=== PATIENT | male | born 1925 | race African-American/Black ===

== ENCOUNTER 2016-10-12 10:54 | Emergency (ER) | payer MEDICARE, BC ==
--- NOTE | 2016-10-12 11:02 | ER Document Report ---
ED Dizziness/Weakness - General Mode of Arrival: Medic Information source: Patient TRAVEL OUTSIDE OF THE [place] IN LAST 30 DAYS: No - HPI Patient complains to provider of: Dizziness, Weakness Onset: Other - Refer to HPI notes <KAYE PINTO - Last Filed: 10/12/16 11:09> <MARIIA HUERTAMY - Last Filed: 10/13/16 22:41> - General Stated Complaint: DIZZINESS,WEAKNESS Time Seen by Provider: 10/12/16 11:01 Notes: Patient is an 89 year old male presenting to the emergency department for weakness and dizziness. Patient states he has had these symptoms for the last few weeks and has increased dizziness over the last 2-3 days. Patient states he feels like he is staggering/walking into cervantes when he ambulates which has been present over the last 2-3 days. Patient was out driving today and noticed he was driving very slow, about only 5 mph so he pulled over and contacted EMS. Patient has not had an appetite lately and has not been drinking many fluids. Patient's last PO was 1 hour ago. Patient lives with his . Patient denies any headache, blurry or double vision, nausea, vomiting, diarrhea, difficulty urinated or having a bowel movement, chest pain, or shortness of breath. Patient also denies any known history of a stroke. Patient has a history of hypertension, hypercholesterolemia and a stent. Patient resides with his spouse. (KAYE PINTO) - Related Data Allergies/Adverse Reactions: No Known Allergies Allergy (Verified 10/12/16 11:48) Home Medications: Current Home Medications Amlodipine Besylate [Amlodipine Besylate] 5 mg PO BID 10/12/16 [History] Latanoprost [Latanoprost] 1 drop OU QHS 10/12/16 [History] Past Medical History - General Information source: Patient - Social History Smoking Status: Unknown if Ever Smoked Family History: None Patient has suicidal ideation: No Patient has homicidal ideation: No - Past Medical History Cardiac Medical History: Reports: Hx Hypercholesterolemia, Hx Hypertension - medicated/CONTROLLED Past Surgical History: Reports: Hx Orthopedic Surgery - Immunizations Hx Diphtheria, Pertussis, Tetanus Vaccination: No <KAYE PINTO - Last Filed: 10/12/16 11:09> Review of Systems - Review of Systems Constitutional: See HPI, Weakness EENT: No symptoms reported Cardiovascular: See HPI, Dizziness Respiratory: No symptoms reported Gastrointestinal: No symptoms reported Genitourinary: No symptoms reported Male Genitourinary: No symptoms reported Musculoskeletal: No symptoms reported Skin: No symptoms reported Hematologic/Lymphatic: No symptoms reported Neurological/Psychological: See HPI, Weakness, Gait changes -: Yes All other systems reviewed and negative <KAYE PINTO - Last Filed: 10/12/16 11:09> Physical Exam <KAYE PINTO - Last Filed: 10/12/16 11:09> <BRADLEYADELINE - Last Filed: 10/13/16 22:41> - Vital signs Vitals: Temp Pulse Resp BP Pulse Ox 98.0 F 57 L 16 149/76 H 97 10/12/16 11:02 10/12/16 11:02 10/12/16 11:02 10/12/16 11:02 10/12/16 11:02 - Notes Notes: GENERAL: Alert, interacts well. Mild distress. HEAD: Normocephalic, atraumatic. EYES: Appear normal. Pupils equal, round, and reactive to light. ENT: Moist mucus membranes, tongue midline. NECK: Full range of motion. Supple. Trachea midline. LUNGS: Clear to auscultation bilaterally, no wheezes, rales, or rhonchi. No respiratory distress. HEART: Regular rate and rhythm. No murmurs, gallops, or rubs. ABDOMEN: Soft, non-tender. Non-distended. Normal bowel sounds. EXTREMITIES: Moves all 4 extremities spontaneously. Normal strength. No edema. NEUROLOGICAL: Alert and oriented x3. Normal speech. No focal neurological deficits. GSC 15. Ambulation is tested during exam, patient has a normal gait but states he has increased dizziness in his head while walking and states he feels horrible. PSYCH: Normal affect, normal mood. SKIN: Warm, dry, normal turgor. No rashes or lesions noted. (KAYE PINTO) Course <KAYE PINTO - Last Filed: 10/12/16 11:09> - Laboratory Result Diagrams: 10/12/16 11:10 10/12/16 11:10 <BRADLEYADELINE - Last Filed: 10/13/16 22:41> - Re-evaluation Re-evalutation: 10/12/16 12:41 Presents emergency department with a chief complaint of dizziness intermittently for the past 2-3 weeks constant and worsening for the past 2-3 days. He says when he walks h n speech denies weakness on one side of body versus the other he denies any chest pain shortness breath nausea vomiting dull pain diarrhea fevers chills or change in appetite but states he has not had much of an appetite and does not eat well and has not done so in quite some time. On examination he is normotensive not tachypneic or tachycardic she has a GCS of 15 with no acute neurological deficits. I ambulated him in the room he says he feels a little full in his head but he is able to ambulate without any difficulty and is not- ataxic. 10/12/16 13:18 Patient reassessed at bedside CT chest x-ray EKG and labs are all normal. Family is here had a long discussion with them including the daughter who is a nurse practitioner. Patient is eating and drinking at bedside no acute distress vital signs are stable. He has a GCS of 15 no neurological deficits and was not ataxic gait gait so I do not think any to admit him for an MRI to rule out cerebellar stroke. He does not eat or drink a lot maybe 2 glasses of lemonade a day encouraged him to drink plenty of fluids and follow-up with his primary care physician on Friday and discuss this with the family as well and discussed specific reasons for ED return sooner 10/12/16 13:48 Reassessed again with family members still remains slightly dizzy. I told the patient at this time I want to admit him to the hospital his daughter also wanted to be admitted to the hospital he vehemently refused to be admitted to the hospital and he is of sound mind and judgment. And has declined admission at this time. I told him to return immediately for any concerning conditions otherwise he is going to follow primary care on Friday return for increasing worsening or new symptoms (ADELINE HUERTA) - Vital Signs Vital signs: Temp Pulse Resp BP Pulse Ox 97.4 F 55 L 16 148/99 H 100 10/12/16 13:32 10/12/16 13:32 10/12/16 13:32 10/12/16 13:32 10/12/16 13:32 - Laboratory Laboratory results interpreted by me: 10/12/16 10/12/16 11:10 11:10 WBC 3.0 L RBC 4.19 L Hgb 13.1 L Plt Count 146 L Seg Neutrophils % 37.1 L Eosinophils % 12.7 H Absolute Neutrophils 1.1 L Chloride 108 H Creatinine 1.41 H Est GFR ( Amer) 57 L Est GFR (Non-Af Amer) 47 L - EKG Interpretation by Me Additional EKG results interpreted by me: 10/12/16 11:07 EKG interpreted by myself through the hospital sinus rhythm at [address] segment elevation or depression (ADELINE HUERTA) Discharge <KAYE PINTO - Last Filed: 10/12/16 11:09> <ADELINE HUERTA - Last Filed: 10/13/16 22:41> - Discharge Clinical Impression: Dizziness, Weakness Condition: Stable Disposition: HOME, SELF-CARE Additional Instructions: Dizziness Under normal circumstances, your sense of balance is controlled by a number of signals that your brain receives from several locations: Eyes. No matter what your position, visual signals help you determine where your body is in space and how it's moving. Sensory nerves. These are in your skin, muscles and joints. Sensory nerves send messages to your brain about body movements and positions. Inner ear. The organ of balance in your inner ear is the vestibular labyrinth. It includes loop-shaped structures (semicircular canals) that contain fluid and fine, hair-like sensors that monitor the rotation of your head. Near the semicircular canals are the utricle and saccule, which contain tiny particles called otoconia ([id number]). These particles are attached to sensors that help detect gravity and [id number]-[id number] motion. Good balance depends on at least two of these three sensory systems working well. For instance, closing your eyes while washing your hair in the shower doesn't mean you'll lose your balance. Signals from your inner ear and sensory nerves help keep you upright. However, if your central nervous system can't process signals from all of these locations, if the messages are contradictory, or if the sensory systems aren't functioning properly, you may experience loss of balance. Dizziness may have a number of potential causes. These may include: Feeling of faintness (presyncope) "Presyncope" is the medical term for feeling faint and lightheaded without losing consciousness. Sometimes nausea, pale skin and a sense of dizziness accompany a feeling of faintness. Causes of presyncope include: Drop in blood pressure (orthostatic hypotension). A dramatic drop in your systolic blood pressure - the higher number in your blood pressure reading - may result in lightheadedness or a feeling of faintness. It can occur after sitting up or standing too quickly. Inadequate output of blood from the heart. Conditions such as partially blocked arteries (atherosclerosis), disease of the heart muscle (cardiomyopathy) , abnormal heart rhythm (arrhythmia) or a decrease in blood volume may cause inadequate blood flow from your heart. Loss of balance (disequilibrium) Disequilibrium is the loss of balance or the feeling of unsteadiness when you walk. Causes may include: Inner ear (vestibular) problems. Abnormalities with your inner ear can cause you to feel like you are floating, have a heavy head or are unsteady in the dark. Sensory disorders. Failing vision and nerve damage in your legs (peripheral neuropathy) are common in older adultsand may result in difficulty maintaining your balance. Joint and muscle problems. Muscle weakness and osteoarthritis - the type of arthritis that involves wear and tear of your joints - can contribute to loss of balance when it involves your weight-bearing joints. Medications. Loss of balance can be a side effect of certain medications, such as anti-seizure drugs, sedatives and tranquilizers. Lightheadedness and other kinds of 'dizziness' Feeling lightheaded is the feeling of being "spaced out" or having the sensation of spinning inside your head. It can also give you the sensation that if your lightheadedness worsens, you might lose consciousness. Causes may include: Inner ear disorders. These abnormalities of your inner ear can lead to illusions of motion and make you feel like you're floating. Anxiety disorders. Certain anxiety disorders, such as panic attacks and a fear of leaving home or being in large, open spaces (agoraphobia), may cause lightheadedness. Hyperventilation. Abnormally rapid breathing that often accompanies anxiety disorders may make you feel lightheaded. follow Up with your primary care physician on Friday return for increasing worsening or new symptoms Prescriptions: Meclizine HCl [Antivert 25 mg Tablet] 25 mg PO TID #12 tablet Scribe Documentation - Scribe Written by Luis:: Luis Sanderson 10/12/16 11:27 acting as scribe for :: Bradley <KAYE PINTO - Last Filed: 10/12/16 11:09>
[2016-10-12 11:28] LABS: ABSOLUTE EOSINOPHILS # (AUTO) 0.4 10^3/uL (0.0-0.6); ABSOLUTE LYMPHOCYTES (AUTO) 1.1 10^3/uL (0.5-4.7); ABSOLUTE MONOCYTES (AUTO) 0.4 10^3/uL (0.1-1.4); ABSOLUTE NEUT (AUTO) 1.1 10^3/uL (1.7-8.2); BASOPHILS % (AUTO) 1.2 % (0-2); EOSINOPHILS % (AUTO) 12.7 % (0-6); HEMATOCRIT 39.7 % (37.9-51.0); HEMOGLOBIN 13.1 g/dL (13.5-17.0); HGB HCT DIFFERENCE -0.4; LYMPHOCYTES % (AUTO) 36.5 % (13-45); MEAN CORPUSCULAR HEMOGLOBIN 31.3 pg (27.0-33.4); MEAN CORPUSCULAR HGB CONC 33.1 g/dL (32.0-36.0); MEAN CORPUSCULAR VOLUME 95 fl (80-97); MONOCYTES % (AUTO) 12.5 % (3-13); RED BLOOD COUNT 4.19 10^6/uL (4.35-5.55); RED CELL DISTRIBUTION WIDTH 13.3 % (11.5-14.0); SEGMENTED NEUTROPHILS % (AUTO) 37.1 % (42-78)
[2016-10-12 11:51] LABS: ALANINE AMINOTRANSFERASE 24 U/L (21-72); ALBUMIN 3.8 g/dL (3.5-5.0); ALKALINE PHOSPHATASE 49 U/L (38-126); ANION GAP 8 (5-19); ASPARTATE AMINO TRANSFERASE 27 U/L (17-59); BILIRUBIN,DIRECT 0.2 mg/dL (0.0-0.4); BILIRUBIN,TOTAL 0.4 mg/dL (0.2-1.3); BLOOD UREA NITROGEN 18 mg/dL (7-20); CALCIUM 9.5 mg/dL (8.4-10.2); CARBON DIOXIDE 26 mmol/L (22-30); CHLORIDE 108 mmol/L (98-107); CREATINE KINASE 144 U/L (55-170); CREATININE RESULT 1.41 mg/dL (0.52-1.25); GLUCOSE 110 mg/dL (75-110); POTASSIUM 4.2 mmol/L (3.6-5.0); SODIUM 142.2 mmol/L (137-145)
[2016-10-12 12:02] LABS: TROPONIN I < 0.012 ng/mL
--- NOTE | 2016-10-12 12:11 | RADIOLOGY REPORT (SQ) ---
EXAM DESCRIPTION: CT HEAD WITHOUT COMPLETED DATE/TIME: 10/12/2016 11:57 am REASON FOR STUDY: DIZZINESS COMPARISON: 05/12/2014 TECHNIQUE: Axial images acquired through the brain without intravenous contrast. Images reviewed wi th bone, brain and subdural windows. Images stored on PACS. All CT scanners at this facility use dose modulation, iterative reconstruction, and/or weight based d osing when appropriate to reduce radiation dose to as low as reasonably achievable (ALARA). [facility]: Dose Right [facility]: CareDose [facility]: Dose Right [facility]: Teradose 4D [facility]: [employer] RADIATION DOSE: Up-to-date CT equipment and radiation dose reduction techniques were employed. CTDIv ol: 64.6 mGy. DLP: 1163 mGy-cm.mGy. LIMITATIONS: None. FINDINGS: VENTRICLES: Prominent. CEREBRUM: No masses. No hemorrhage. No midline shift. Areas of low density in the white matter mos t likely due to chronic micro-vascular ischemic change. No evidence for acute infarction. CEREBELLUM: No masses. No hemorrhage. No alteration of density. No evidence for acute infarction. EXTRAAXIAL SPACES: Age-related involutional change. No fluid collections. No masses. ORBITS AND GLOBE: No intra- or extraconal masses. Normal contour of globe without masses. CALVARIUM: No fracture. PARANASAL SINUSES: No fluid or mucosal thickening. SOFT TISSUES: No mass or hematoma. OTHER: No other significant finding. IMPRESSION: NO ACUTE INTRACRANIAL PROCESS. NO SIGNIFICANT CHANGE FROM PRIOR STUDY. TECHNICAL DOCUMENTATION: JOB ID: [id number] Quality ID # [id number]: Final reports with documentation of one or more dose reduction techniques (e.g., Au tomated exposure control, adjustment of the mA and/or kV according to patient size, use of iterative reconstruction technique) 2010 [employer]- All Rights Reserved
--- NOTE | 2016-10-12 12:15 | RADIOLOGY REPORT (SQ) ---
EXAM DESCRIPTION: CHEST SINGLE VIEW COMPLETED DATE/TIME: 10/12/2016 11:55 am REASON FOR STUDY: dizziness COMPARISON: 02/21/2015 EXAM PARAMETERS: NUMBER OF VIEWS: One view. TECHNIQUE: Single frontal radiographic view of the chest acquired. RADIATION DOSE: NA LIMITATIONS: None. FINDINGS: LUNGS AND PLEURA: No opacities, masses or pneumothorax. No pleural effusion. MEDIASTINUM AND HILAR STRUCTURES: Stable in size and contour. HEART AND VASCULAR STRUCTURES: Heart normal in size. Normal vasculature. BONES: No acute findings. HARDWARE: None in the chest. OTHER: No other significant finding. IMPRESSION: NO ACUTE RADIOGRAPHIC FINDING IN THE CHEST. NO SIGNIFICANT CHANGE FROM PRIOR STUDY. TECHNICAL DOCUMENTATION: JOB ID: [id number]
[2016-10-12 12:48] LABS: APPEARANCE,URINE SLIGHTLY-CLOUDY; BILIRUBIN,URINE NEGATIVE (NEGATIVE); GLUCOSE, URINE NEGATIVE (NEGATIVE); KETONES,URINE NEGATIVE (NEGATIVE); LEUKOCYTE ESTERASE,URINE NEGATIVE (NEGATIVE); NITRITE,URINE NEGATIVE (NEGATIVE); PROTEIN,URINE NEGATIVE (NEGATIVE); URINE SPECIFIC GRAVITY 1.017; UROBILINOGEN,URINE NEGATIVE mg/dL (<2.0)
[2016-10-12 13:40] VITALS: BP 148/99
--- NOTE | 2016-10-13 13:42 | EKG REPORT ---
SEVERITY:- BORDERLINE ECG - SINUS RHYTHM PROBABLE LEFT ATRIAL ABNORMALITY : Confirmed by: Cinthya Blake MD 13-Oct-2016 13:42:18
== END 2016-10-12 13:32 | disposition home or self-care (01) ==
LOC: ER 10:54
DX: R42 Dizziness and giddiness (principal); R53.1 Weakness; R63.0 Anorexia; I10 Essential (primary) hypertension
CPT/HCPCS: 36415; 70450; 71010; 80053; 81001; 82550; 83880; 84484; 85025; 93005; 93010; 99285

== ENCOUNTER 2016-10-15 11:49 | Emergency (ER) | payer MEDICARE, BC ==
[2016-10-15] MEDS ORDERED: NORMAL SALINE 1000 ML 1,000 ML IV ONE (12:22)
--- NOTE | 2016-10-15 12:22 | ER Document Report ---
ED General - General Chief Complaint: Dizziness Stated Complaint: DIZZINESS Time Seen by Provider: 10/15/16 12:08 Notes: Patient was brought to the emergency department for reported dizziness and lightheadedness. Patient is 89 years old and still drives his car. He tells me that he was driving the car several days ago and noted that he was only going 20 [address] [place] Seen here in the emergency department for feeling weak and dizzy for the past several weeks. His visit records shows that he was here on the , just 3 days ago. Patient is a poor historian. Initially, he said he did not know why he was here or who called the rescue squad. Throughout our conversation, the patient keeps saying "let me get myself together". Still, the patient does seem to know much about his history and background. He has bottles of medication for cholesterol, hypertension, and meclizine, presumably for dizziness. Patient denies having any pains whatsoever. Denies headache, chest pain, or abdominal pain. He says a son visited from [place] over the weekend and told other family members he thought the patient was dehydrated. Patient says he has a very poor appetite and does not eat very well. Patient went to a local clinic where he is establish as a patient and had blood work drawn yesterday, but does not know any of the results. Patient has had his prostate removed. TRAVEL OUTSIDE OF THE [place] IN LAST 30 DAYS: No - Related Data Allergies/Adverse Reactions: No Known Allergies Allergy (Verified 10/12/16 11:48) Past Medical History - Social History Smoking Status: Never Smoker Chew tobacco use (# tins/day): No Frequency of alcohol use: None Drug Abuse: None Family History: None, Reviewed & Not Pertinent Patient has suicidal ideation: No Patient has homicidal ideation: No - Past Medical History Cardiac Medical History: Reports: Hx Hypercholesterolemia, Hx Hypertension - medicated/CONTROLLED Denies: Hx Heart Attack Pulmonary Medical History: Denies: Hx Asthma GI Medical History: Denies: Hx Hepatitis, Hx Hiatal Hernia, Hx Ulcer Infectious Medical History: Denies: Hx Hepatitis Past Surgical History: Reports: Hx Orthopedic Surgery - Immunizations Hx Diphtheria, Pertussis, Tetanus Vaccination: No Review of Systems - Review of Systems Notes: REVIEW OF SYSTEMS: CONSTITUTIONAL : Denies fever. Sleeps a lot. EENT: Denies eye, ear, nose or mouth or throat pain or other symptoms. CARDIOVASCULAR: Denies chest pain. RESPIRATORY: Denies cough, chest congestion, or shortness of breath. GASTROINTESTINAL: Denies abdominal pain or nausea, vomiting, or diarrhea. GENITOURINARY: Denies difficulty or painful urinating, urinary frequency, blood in urine. MUSCULOSKELETAL: Denies back or neck pain. Denies joint pain or swelling. SKIN: Denies rash or skin lesions. NEUROLOGICAL: Denies LOC or altered mental status. Denies headache. Denies sensory loss or motor deficits. ALL OTHER SYSTEMS REVIEWED AND NEGATIVE. Physical Exam - Vital signs Vitals: Resp 15 10/15/16 11:50 Interpretation: Normal - Notes Notes: PHYSICAL EXAMINATION: GENERAL: Well-appearing, in no acute distress. HEAD: Atraumatic, normocephalic. NECK: Normal range of motion, supple. No carotid bruits heard. LUNGS: Breath sounds clear and equal bilaterally. HEART: Regular rate and rhythm without murmurs. ABDOMEN: Soft, nontender. No guarding or rebound. BACK: No tenderness throughout entire back. EXTREMITIES: Normal range of motion without pain. NEUROLOGICAL: Normal speech, but confused at times. Normal sensory, motor, and reflex exams. Awake, alert, and oriented x3. PSYCH: Normal mood, normal affect. SKIN: Warm, dry, no rashes. Course - Re-evaluation Re-evalutation: 10/15/16 19:56 Patient remained very stable throughout his entire stay. His vital signs remained normal. His family came to visit I was able to talk with them and explained the findings. His labs suggest slight, very slight dehydration. Otherwise patient looks to be in pretty good health. There is no evidence of any infectious processes. I did strongly urged the patient to stop driving his motor vehicle. I pointed out to him that his capabilities and reflexes at this age are not sufficient to handle a large vehicle and he is going to hurt himself or someone else if he continues driving. - Vital Signs Vital signs: Temp Pulse Resp BP Pulse Ox 98.2 F 67 16 163/85 H 99 10/15/16 14:23 10/15/16 12:14 10/15/16 14:23 10/15/16 14:24 10/15/16 14:22 - Laboratory Result Diagrams: 10/15/16 12:20 10/15/16 12:20 Laboratory results interpreted by me: 10/15/16 10/15/16 12:20 12:20 WBC 3.4 L RBC 3.75 L Hgb 11.7 L Hct 35.2 L Plt Count 120 L Seg Neutrophils % 29.9 L Eosinophils % 19.3 H Absolute Neutrophils 1.0 L Absolute Eosinophils 0.7 H Chloride 110 H Creatinine 1.31 H Est GFR (Non-Af Amer) 52 L Total Protein 6.1 L Albumin 3.1 L - Diagnostic Test Radiology reviewed: Image reviewed, Reports reviewed - CT scan shows microvascular ischemia and atrophy but no acute processes. Discharge - Discharge Clinical Impression: Weakness, Dehydration, mild Condition: Stable Disposition: HOME, SELF-CARE Additional Instructions: Weakness We did not find a definite cause for your weakness. This may require further medical tests. Weakness can be caused by infection, physical exhaustion , rapid weight loss, dehydration, or medicine side effects. Diseases of the muscles, heart, nerves, and blood vessels can make you weak. Sometimes the problem is simply depression or lack of exercise. You should get plenty of rest. Unless the doctor tells you otherwise, it's usually best to add short periods of regular mild exercise. Eat a nutritious diet with multiple small, low-sugar meals. If symptoms continue, additional medical evaluation will be necessary. Be sure to follow up as instructed. If you become very dizzy, nauseated, or feel like you're going to faint, lie down right away. Wait until the symptoms have passed before you get up again. Stand up slowly. Call the doctor or return if you develop chest pain, abdominal pain, severe headache, irregular heartbeat or very fast pulse, confusion, vision problems, fever, muscular pain, or any other new symptom. DIZZINESS: Under normal circumstances, your sense of balance is controlled by a number of signals that your brain receives from several locations: Eyes. No matter what your position, visual signals help you determine where your body is in space and how it's moving. Sensory nerves. These are in your skin, muscles and joints. Sensory nerves send messages to your brain about body movements and positions. Inner ear. The organ of balance in your inner ear is the vestibular labyrinth. It includes loop-shaped structures (semicircular canals) that contain fluid and fine, hair-like sensors that monitor the rotation of your head. Near the semicircular canals are the utricle and saccule, which contain tiny particles called otoconia ([id number]). These particles are attached to sensors that help detect gravity and hsmd-jny-[id number] motion. Good balance depends on at least two of these three sensory systems working well. For instance, closing your eyes while washing your hair in the shower doesn't mean you'll lose your balance. Signals from your inner ear and sensory nerves help keep you upright. However, if your central nervous system can't process signals from all of these locations, if the messages are contradictory, or if the sensory systems aren't functioning properly, you may experience loss of balance. Dizziness may have a number of potential causes. These may include: Lightheadedness and other kinds of dizziness Feeling lightheaded is the feeling of being "spaced out" or having the sensation of spinning inside your head. It can also give you the sensation that if your lightheadedness worsens, you might lose consciousness. Causes may include: Inner ear disorders. These abnormalities of your inner ear can lead to illusions of motion and make you feel like you're floating. Anxiety disorders. Certain anxiety disorders, such as panic attacks and a fear of leaving home or being in large, open spaces (agoraphobia), may cause lightheadedness. Hyperventilation. Abnormally rapid breathing that often accompanies anxiety disorders may make you feel lightheaded. NORMAL EXAM AND WORKUP: At this time, your examination and workup show no significant abnormality. No significant abnormal physical findings were noted. All laboratory, EKG, and imaging (x-ray, CT scans, ultrasound) studies that were ordered show no significant abnormality. Although your examination and all studies that were ordered showed no significant abnormal finding, there are no examinations and no studies that are 100% accurate. There is always the possibility that some abnormality could exist and not be detected with physical examination or within the limits and capabilities of laboratory and other studies. You should return or follow up as you were instructed on your visit today for further evaluation if your symptoms do not resolve. Dehydration, Mild Dehydration can result from vomiting or diarrhea, fever, or decreased intake of fluids. If severe, hospitalization and intravenous fluids may be required. Most cases are treated at home with fluids by mouth. For the next 24 hours, drink lots of clear fluids. In mild cases, this can be soda pop or sports drinks. For more severe dehydration, the doctor may recommend special fluids such as Pedialyte or Lytren. Try to get three liters ( 3 quarts) of fluid per day. If vomiting occurs, continue to drink the fluids frequently (every 15 to 20 minutes), but in small amounts (one or two ounces). Depending on the type of dehydration, the doctor may prescribe antinausea medicine or potassium replacements. Call the doctor or return for re-examination if you become progressively weak, vomit repeatedly, or have other new symptoms. FOLLOW-UP CARE: If you have been referred to a physician for follow-up care, call the physician s office for an appointment as you were instructed or within the next two days. If you experience worsening or a significant change in your symptoms, notify the physician immediately or return to the Emergency Department at any time for re-evaluation. I will up with your primary care provider in Friday, if not feeling better. Referrals: TANIYA SALINAS MD [Primary Care Provider] - Follow up as needed
[2016-10-15 12:37] LABS: ABSOLUTE EOSINOPHILS # (AUTO) 0.7 10^3/uL (0.0-0.6); ABSOLUTE LYMPHOCYTES (AUTO) 1.3 10^3/uL (0.5-4.7); ABSOLUTE MONOCYTES (AUTO) 0.4 10^3/uL (0.1-1.4); EOSINOPHILS % (AUTO) 19.3 % (0-6); HEMATOCRIT 35.2 % (37.9-51.0); HEMOGLOBIN 11.7 g/dL (13.5-17.0); HGB HCT DIFFERENCE -0.1; LYMPHOCYTES % (AUTO) 38.2 % (13-45); MEAN CORPUSCULAR HEMOGLOBIN 31.1 pg (27.0-33.4); MEAN CORPUSCULAR HGB CONC 33.2 g/dL (32.0-36.0); MEAN CORPUSCULAR VOLUME 94 fl (80-97); MONOCYTES % (AUTO) 11.6 % (3-13); RED BLOOD COUNT 3.75 10^6/uL (4.35-5.55); RED CELL DISTRIBUTION WIDTH 13.5 % (11.5-14.0); SEGMENTED NEUTROPHILS % (AUTO) 29.9 % (42-78); WHITE BLOOD COUNT 3.4 10^3/uL (4.0-10.5)
--- NOTE | 2016-10-15 12:51 | EKG REPORT ---
SEVERITY:- ABNORMAL ECG - SINUS RHYTHM FIRST DEGREE AV BLOCK LVH BY VOLTAGE BORDERLINE T ABNORMALITIES, INFERIOR LEADS : Confirmed by: Cinthya Blake MD 15-Oct-2016 12:49:51
[2016-10-15 12:59] LABS: ALANINE AMINOTRANSFERASE 31 U/L (21-72); ALBUMIN 3.1 g/dL (3.5-5.0); ALKALINE PHOSPHATASE 57 U/L (38-126); ANION GAP 8 (5-19); ASPARTATE AMINO TRANSFERASE 29 U/L (17-59); BILIRUBIN,DIRECT 0.3 mg/dL (0.0-0.4); BILIRUBIN,TOTAL 0.3 mg/dL (0.2-1.3); BLOOD UREA NITROGEN 16 mg/dL (7-20); CALCIUM 8.4 mg/dL (8.4-10.2); CARBON DIOXIDE 25 mmol/L (22-30); CHLORIDE 110 mmol/L (98-107); CREATINE KINASE 99 U/L (55-170); CREATININE RESULT 1.31 mg/dL (0.52-1.25); GLUCOSE 106 mg/dL (75-110); POTASSIUM 3.8 mmol/L (3.6-5.0); SODIUM 142.5 mmol/L (137-145); TOTAL PROTEIN 6.1 g/dL (6.3-8.2)
[2016-10-15 13:12] LABS: CREATINE KINASE MB 0.78 ng/mL (<4.55)
[2016-10-15 13:16] LABS: TROPONIN I < 0.012 ng/mL
--- NOTE | 2016-10-15 13:16 | RADIOLOGY REPORT (SQ) ---
EXAM DESCRIPTION: CT HEAD WITHOUT COMPLETED DATE/TIME: 10/15/2016 1:01 pm REASON FOR STUDY: Dizziness and confusion COMPARISON: 10/12/2016. TECHNIQUE: Axial images acquired through the brain without intravenous contrast. Images reviewed wi th bone, brain and subdural windows. Images stored on PACS. All CT scanners at this facility use dose modulation, iterative reconstruction, and/or weight based d osing when appropriate to reduce radiation dose to as low as reasonably achievable (ALARA). [facility]: Dose Right [facility]: CareDose [facility]: Dose Right [facility]: Teradose 4D [facility]: Connoshoer RADIATION DOSE: Up-to-date CT equipment and radiation dose reduction techniques were employed. CTDIv ol: 64.6 mGy. DLP: 1163 mGy-cm.mGy. LIMITATIONS: None. FINDINGS: VENTRICLES: Prominent. CEREBRUM: No masses. No hemorrhage. No midline shift. Areas of low density in the white matter mos t likely due to chronic micro-vascular ischemic change. No evidence for acute infarction. CEREBELLUM: No masses. No hemorrhage. No alteration of density. No evidence for acute infarction. EXTRAAXIAL SPACES: Age-related involutional change. No fluid collections. No masses. ORBITS AND GLOBE: No intra- or extraconal masses. Normal contour of globe without masses. CALVARIUM: No fracture. PARANASAL SINUSES: No fluid or mucosal thickening. SOFT TISSUES: No mass or hematoma. OTHER: No other significant finding. 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 NO ACUTE PROCESS. TECHNICAL DOCUMENTATION: JOB ID: [id number] Quality ID # [id number]: Final reports with documentation of one or more dose reduction techniques (e.g., Au tomated exposure control, adjustment of the mA and/or kV according to patient size, use of iterative reconstruction technique) 2010 [employer]- All Rights Reserved
[2016-10-15 13:21] LABS: APPEARANCE,URINE CLEAR; BILIRUBIN,URINE NEGATIVE (NEGATIVE); GLUCOSE, URINE NEGATIVE (NEGATIVE); KETONES,URINE NEGATIVE (NEGATIVE); LEUKOCYTE ESTERASE,URINE NEGATIVE (NEGATIVE); NITRITE,URINE NEGATIVE (NEGATIVE); PROTEIN,URINE NEGATIVE (NEGATIVE); URINE SPECIFIC GRAVITY 1.008; UROBILINOGEN,URINE NEGATIVE mg/dL (<2.0)
[2016-10-15 14:27] VITALS: BP 163/85
== END 2016-10-15 14:27 | disposition home or self-care (01) ==
LOC: ER 11:49
DX: E86.0 Dehydration (principal); R42 Dizziness and giddiness
CPT/HCPCS: 93005; 99284; 36415; 82553; 82550; 85025; 80053; 81001; 84484; 70450; 93010; J7030; 96360

== ENCOUNTER → 2016-11-28 | Outpatient (CLI) | payer MEDICARE, BC | LOC: SP 10:40 | PROVIDERS: ATTEND Internal Medicine | DX: I10 Essential (primary) hypertension (principal) | CPT/HCPCS: 93306 ==